=== PATIENT | female | born 1950 | race Caucasian/White ===

== ENCOUNTER → 2017-07-17 | Outpatient (CLI) | payer OTHER | LOC: FIMAGING 16:09 | PROVIDERS: ATTEND Internal Medicine | DX: Z12.31 Encounter for screening mammogram for malignant neoplasm of breast (principal); Z80.3 Family history of malignant neoplasm of breast | CPT/HCPCS: G0202 ==

== ENCOUNTER → 2018-07-18 | Outpatient (CLI) | payer OTHER, MEDICARE | LOC: FIMAGING 07:35 | PROVIDERS: ATTEND Internal Medicine | DX: Z12.31 Encounter for screening mammogram for malignant neoplasm of breast (principal); Z80.3 Family history of malignant neoplasm of breast ==

== ENCOUNTER 2018-07-29 14:52 | Inpatient (IN) | payer OTHER, MEDICARE ==
[2018-07-29] MEDS ORDERED: MAG HYDROX/AL HYDROX/SIMETH 30 ML UDCUP PO ONE (15:22)
[2018-07-29] MEDS ORDERED: NS 1,000 ML IV ONE (15:22)
[2018-07-29] MEDS ORDERED: HYOSCYAMINE SULFATE 0.125 MG TAB PO ONE (15:22)
[2018-07-29] MEDS ORDERED: LIDOCAINE 2% VISCOUS 15 ML UDCUP PO ONE (15:22)
[2018-07-29] MEDS ORDERED: ONDANSETRON 4 MG/2 ML VIAL IVP ONE (15:22)
--- NOTE | 2018-07-29 15:27 | EDPHY ---
H & P Stated Complaint: n/v epigastric abd pain post eating questionable food outside Time Seen by Provider: 07/29/18 15:15 HPI/ROS: CHIEF COMPLAINT: Epigastric pain HISTORY OF PRESENT ILLNESS: The patient is a 67-year-old healthy female who comes to the emergency department complaining of epigastric pain that she noticed today a few minutes after eating lunch. She ate a picnic with doubled aches and chicken salad. About 30 min after she began throwing up. She has thrown up twice. No diarrhea. No fever. No chest pain or shortness of breath. The people who also ate the food do not feel sick at all. She has no cardiac or pulmonary history. No history of biliary disease or peptic ulcer disease. She does not feel frequent episodes of heartburn. She describes the pain as sharp in her epigastrium. It is not worsened by deep inspirations are movements. She came in to have her heart evaluated. Severity: Moderate Modifying factors: None REVIEW OF SYSTEMS: Constitutional: denies: chills, fever, recent illness, recent injury EENTM: denies: blurred vision, double vision, nose congestion Respiratory: denies: cough, shortness of breath Cardiac: See HPI denies: irregular heart rate, lightheadedness, palpitations Gastrointestinal/Abdominal: denies: abdominal pain, diarrhea, nausea, vomiting, blood streaked stools Genitourinary: denies: dysuria, frequency, hematuria, pain Musculoskeletal: denies: joint pain, muscle pain Skin: denies: lesions, rash, jaundice, bruising Neurological: denies: headache, numbness, paresthesia, tingling, dizziness, weakness Hematologic/Lymphatic: denies: blood clots, easy bleeding, easy bruising Immunologic/allergic: denies: HIV/AIDS, transplant EXAM: GENERAL: Well-appearing, well-nourished and in no acute distress. HEAD: Atraumatic, normocephalic. EYES: Pupils equal round and reactive to light, extraocular movements intact, sclera anicteric, conjunctiva are normal. ENT: TMs normal, nares patent, oropharynx clear without exudates. Moist mucous membranes. NECK: Normal range of motion, supple without lymphadenopathy or JVD. LUNGS: Breath sounds clear to auscultation bilaterally and equal. No wheezes rales or rhonchi. HEART: Regular rate and rhythm without murmurs, rubs or gallops. ABDOMEN: Soft, nontender, normoactive bowel sounds. No guarding, no rebound. No masses appreciated. BACK: No CVA tenderness, no spinal tenderness, step-offs or deformities EXTREMITIES: Normal range of motion, no pitting or edema. No clubbing or cyanosis. NEUROLOGICAL: Cranial nerves II through XII grossly intact. Normal speech, normal gait. 5/5 strength, normal movement in all extremities, normal sensation , normal reflexes PSYCH: Normal mood, normal affect. SKIN: Warm, dry, normal turgor, no visible rashes or lesions. Source: Patient, Family Exam Limitations: No limitations - Personal History Current Tetanus Diphtheria and Acellular Pertussis (TDAP): Yes - Medical/Surgical History Hx Asthma: No Hx Chronic Respiratory Disease: No Hx Diabetes: No Hx Cardiac Disease: No Hx Renal Disease: No Hx Cirrhosis: No Hx Alcoholism: No Hx HIV/AIDS: No Hx Splenectomy or Spleen Trauma: No Other PMH: denies - Family History Significant Family History: No pertinent family hx - Social History Smoking Status: Never smoked Alcohol Use: Sober Drug Use: None Constitutional: Initial Vital Signs Temperature (C) 36.8 C 07/29/18 14:55 Heart Rate 63 07/29/18 14:55 Respiratory Rate 18 07/29/18 14:55 Blood Pressure 119/63 07/29/18 14:55 O2 Sat (%) 97 07/29/18 14:55 O2 Delivery Mode Nasal Cannula O2 (L/minute) 2 Allergies/Adverse Reactions: No Known Allergies Allergy (Verified 07/29/18 18:30) Home Medications: Medication Instructions Recorded Ibuprofen [Motrin (*)] 200 - 600 mg PO Q6H PRN 07/29/18 Medical Decision Making - Diagnostics EKG Interpretation: An EKG obtained and was read and documented in trace view. Please see trace view for full reading and report. Sinus rhythm, no acute ischemic changes Imaging: Discussed imaging studies w/ call worker person Radiologist ED Course/Re-evaluation: 4:50 p.m. the patient continues to have pain. Her lipase just came back and is securely elevated. I will order an ultrasound. She denies significant alcohol intake. No history of familial hypercholesterolemia. 5:50 p.m. I discussed the case with Dr. Mack who will admit to the medical service and requests an MRCP. Differential Diagnosis: Partial list of the Differential diagnosis considered include but were not limited to; acute coronary disease, pancreatitis, biliary disease, peptic ulcer disease and although unlikely based on the history and physical exam, I also considered dissection, aneurysm, PE. - Data Points Laboratory Results: Laboratory Results 07/29/18 15:28 07/29/18 15:28 Medications Given: Acetaminophen (Tylenol) 650 mg PO Q4HRS PRN PRN Reason: Pain, Mild/Fever, Can Take PO Stop: 01/25/19 21:17 Last Admin: 07/30/18 17:21 Dose: 650 mg Enoxaparin Sodium (Lovenox) 40 mg SC DAILY JHON Stop: 01/26/19 08:59 Last Admin: 07/30/18 08:33 Dose: 40 mg Hydromorphone HCl (Dilaudid) 0.2 - 1 mg IVP Q2 PRN PRN Reason: Pain, Severe Unable to Take PO Stop: 08/08/18 21:17 Last Admin: 07/29/18 21:48 Dose: 0.5 mg Sodium Chloride (Ns) 1,000 mls @ 100 mls/hr IV CONT JHON Stop: 01/25/19 21:29 Last Admin: 07/30/18 08:33 Dose: 1,000 mls Ketorolac Tromethamine (Toradol) 15 - 30 mg IVP Q6HRS PRN PRN Reason: Pain, Breakthrough Stop: 08/04/18 00:00 Last Admin: 07/30/18 14:19 Dose: 15 mg Discontinued Medications Al Hydroxide/Mg Hydroxide (Maalox Susp) 30 ml PO ONCE ONE Stop: 07/29/18 15:23 Last Admin: 07/29/18 15:49 Dose: 30 ml Hydromorphone HCl (Dilaudid) 0.5 mg IVP EDNOW ONE Stop: 07/29/18 16:48 Last Admin: 07/29/18 17:07 Dose: 0.5 mg Hyoscyamine Sulfate (Levsin, Hyomax-Sl) 0.25 mg PO ONCE ONE Stop: 07/29/18 15:23 Last Admin: 07/29/18 15:49 Dose: 0.25 mg Sodium Chloride (Ns) 1,000 mls @ 0 mls/hr IV EDNOW ONE; Wide Open PRN Reason: Protocol Stop: 07/29/18 15:23 Last Admin: 07/29/18 15:48 Dose: 1,000 mls Lidocaine (Lidocaine 2% Viscous) 15 ml PO ONCE ONE Stop: 07/29/18 15:23 Last Admin: 07/29/18 15:49 Dose: 15 ml Ondansetron HCl (Zofran) 4 mg IVP EDNOW ONE Stop: 07/29/18 15:23 Last Admin: 07/29/18 15:49 Dose: 4 mg Point of Care Test Results: Chemistry 07/29/18 15:26 POC Troponin I 0.01 ng/mL ng/mL (0.00-0.08) Departure - Departure Disposition: [facility] Acute Clinical Impression: Pancreatitis Qualifiers: Chronicity: acute Pancreatitis type: unspecified pancreatitis type Acute pancreatitis complication: unspecified Qualified Code(s): K85.90 - Acute pancreatitis without necrosis or infection, unspecified Condition: Fair
[2018-07-29 15:32] LABS: PLATELET COUNT 219 10^3/uL (150-400)
[2018-07-29] MEDS ORDERED: HYDROmorphONE/DILAUDID 2 MG/ML INJ IVP ONE (16:47)
--- NOTE | 2018-07-29 16:50 | CPEKG ---
Test Reason : OPEN Blood Pressure : / mmHG Vent. Rate : 059 BPM Atrial Rate : 059 BPM P-R Int : 140 ms QRS Dur : 078 ms QT Int : 417 ms P-R-T Axes : 072 064 050 degrees QTc Int : 414 ms Sinus rhythm Probable left atrial enlargement Confirmed by Matt Quinn ([id number] on 07/29/2018 4:50:37 PM Referred By: Confirmed By:Matt Quinn
[2018-07-29] MEDS ORDERED: GADOBUTROL 10 ML VIAL IVP ONE (18:47)
[2018-07-29] MEDS ORDERED: PROMETHAZINE HCL 25 MG TAB PO PRN (21:18)
[2018-07-29] MEDS ORDERED: HYDROmorphONE/DILAUDID 2 MG TAB PO PRN (21:18)
[2018-07-29] MEDS ORDERED: HYDROmorphONE/DILAUDID 1 MG/ML INJ IVP PRN (21:18)
[2018-07-29] MEDS ORDERED: ONDANSETRON DISINTEGRATING 4 MG TAB PO PRN (21:18)
[2018-07-29] MEDS ORDERED: ONDANSETRON 4 MG/2 ML VIAL IVP PRN (21:18)
[2018-07-29] MEDS ORDERED: PROMETHAZINE HCL 25 MG/ML INJ IVP PRN (21:18)
[2018-07-29] MEDS ORDERED: KETOROLAC 15 MG/1 ML SDV IVP PRN (21:20)
--- NOTE | 2018-07-29 22:45 | PDGENHP ---
History and Physical - Chief Complaint Acute abdominal pain - History of Present Illness Primary care provider: Dr. Hillary Mclain HPI: 67-year-old female presents with acute abdominal pain characterized as a sharp pressure located in the mid epigastric area with associated preceding anorexia, subsequent nausea and vomiting. Patient reports the onset of symptoms were approximately 11:15 a.m. On the day of presentation, following a tennis match and lunch. The symptoms have been of constant duration until receiving IV Dilaudid in the emergency department, which has transiently alleviated the symptoms. The patient reports that she has never experienced similar symptoms. Prior to her onset of symptoms, the patient reports that she had had an asymptomatic tennis match on the evening prior to presentation, consumed half of an alcoholic beverage with her dinner, and had a seemingly normal morning on the day of presentation, prior to her onset of symptoms. She was able to complete her tennis match without any symptoms, and she experienced no exertional chest pain or reduction exercise tolerance. History Information - Allergies/Home Medication List Allergies/Adverse Reactions: No Known Allergies Allergy (Verified 07/29/18 18:30) Home Medications: Ibuprofen [Motrin (*)] 200 - 600 mg PO Q6H PRN 07/29/18 [Last Taken 07/27/18 400mg] I have personally reviewed and updated: family history, medical history, social history, surgical history - Past Medical History no pertinent PMH - Surgical History Reports: no pertinent surgical hx - Family History Additional family history: Father with some sort of gallbladder issue, possibly cholecystitis, no biliary or pancreatic cancer, no family history of idiopathic pancreatitis - Social History Smoking Status: Never smoked Alcohol Use: Occasionally (Very minimal intake, 1 alcoholic beverage occasionally) Drug Use: None Additional social history: Very physically active, plays tennis regularly, no reduction exercise tolerance, eats a healthy diet Review of Systems Review of Systems: ROS: 10pt was reviewed & negative except for what was stated in HPI & below Gastrointestinal: Reports: vomitting, abdominal pain, nausea Physical Exam Physical Exam: Temp Pulse Resp BP Pulse Ox 36.7 C 49 L 17 92/70 L 94 07/29/18 20:50 07/29/18 20:50 07/29/18 20:50 07/29/18 20:50 07/29/18 20:50 Constitutional: no apparent distress, appears nourished, not in pain Eyes: PERRL, anicteric sclera, EOMI Ears, Nose, Mouth, Throat: moist mucous membranes, hearing normal, ears appear normal, no oral mucosal ulcers Cardiovascular: regular rate and rhythym, no murmur, rub, or gallop, No edema Respiratory: no respiratory distress, no rales or rhonchi, clear to auscultation Gastrointestinal: tenderness (Moderate to mild depth palpation in the mid epigastric area), No normoactive bowel sounds (Hypoactive bowel sounds), No guarding, No distension Genitourinary: no bladder fullness, no bladder tenderness Neurologic: AAOx3, sensation intact bilaterally, No weakness Psychiatric: interacting appropriately, not anxious, not encephalopathic, thought process linear Lab Data & Imaging Review 07/29/18 15:28 07/29/18 15: WBC 11.01 10^3/uL (3.80-9.50) H 07/29/18 15: RBC 4.32 10^6/uL (4.18-5.33) 07/29/18 15: Hgb 13.1 g/dL (12.6-16.3) 07/29/18 15: Hct 38.6 % (38.0-47.0) 07/29/18 15: MCV 89.4 fL (81.5-99.8) 07/29/18 15: MCH 30.3 pg (27.9-34.1) 07/29/18 15: MCHC 33.9 g/dL (32.4-36.7) 07/29/18 15: RDW 13.2 % (11.5-15.2) 07/29/18 15: Plt Count 219 10^3/uL (150-400) 07/29/18 15: MPV 9.7 fL (8.7-11.7) 07/29/18 15: Neut % (Auto) 77.4 % (39.3-74.2) H 07/29/18 15: Lymph % (Auto) 16.3 % (15.0-45.0) 07/29/18 15: [place] % (Auto) 5.5 % (4.5-13.0) 07/29/18 15: Eos % (Auto) 0.3 % (0.6-7.6) L 07/29/18 15:28 Baso % (Auto) 0.1 % (0.3-1.7) L 07/29/18 15: Nucleat RBC Rel Count 0.0 % (0.0-0.2) 07/29/18 15:28 Absolute Neuts (auto) 8.52 10^3/uL (1.70-6.50) H 07/29/18 15: Absolute Lymphs (auto) 1.80 10^3/uL (1.00-3.00) 07/29/18 15: Absolute Monos (auto) 0.61 10^3/uL (0.30-0.80) 07/29/18: Absolute Eos (auto) 0.03 10^3/uL (0.03-0.40) 07/29/18 15: Absolute Basos (auto) 0.01 10^3/uL (0.02-0.10) L 07/29/18 15: Absolute Nucleated RBC 0.00 10^3/uL (0-0.01) 07/29/18 15: Immature Gran % 0.4 % (0.0-1.1) 07/29/18 15: Immature Gran # 0.04 10^3/uL (0.00-0.10) 07/29/18 15: D-Dimer 0.45 ug/mLFEU (0.00-0.50) 07/29/18 15: Sodium 138 mEq/L (135-145) 07/29/18 15: Potassium 3.8 mEq/L (3.3-5.0) 07/29/18 15: Chloride 106 mEq/L (97-110) 07/29/18 15: Carbon Dioxide 26 mEq/l (22-31) 07/29/18 15:28 Anion Gap 6 mEq/L (8-16) L 07/29/18 15:28 BUN 20 mg/dL (7-23) 07/29/18 15:28 Creatinine 0.8 mg/dL (0.6-1.0) 07/29/18 15:28 Estimated GFR > 60 07/29/18 15:28 Glucose 144 mg/dL (70-100) H 07/29/18 15:28 Calcium 9.3 mg/dL (8.5-10.4) 07/29/18 15:28 Total Bilirubin 0.7 mg/dL (0.1-1.4) 07/29/18 15:28 Conjugated Bilirubin 0.1 mg/dL (0.0-0.5) 07/29/18 15:28 Unconjugated Bilirubin 0.6 mg/dL (0.0-1.1) 07/29/18 15:28 AST 29 IU/L (14-46) 07/29/18 15:28 ALT 33 IU/L (9-52) 07/29/18 15:28 Alkaline Phosphatase 55 IU/L (38-126) 07/29/18 15:28 POC Troponin I 0.01 ng/mL (0.00-0.08) 07/29/18 15:26 Total Protein 6.6 g/dL (6.3-8.2) 07/29/18 15:28 Albumin 4.1 g/dL (3.5-5.0) 07/29/18 15:28 Lipase > 82609 IU/L (23-300) H 07/29/18 15:28 Visualized and Interpreted Chest x-ray results: Yes Chest X-Ray results: no infiltrate Visualized and Interpreted EKG results: Yes EKG Interpretation: Positive for: normal sinsus rhythm Assessment & Plan Assessment: 67-year-old female presents with acute pancreatitis Plan: 1. Acute pancreatitis. New problem this provider, further workup indicated. Unclear etiology, does not appear to be alcohol or diet related -evidenced by lipase of greater than 20,000, with classic midepigastric tenderness -ultrasound demonstrating cholelithiasis but no common bile duct dilatation, small cyst at the pancreatic head -I suspect that this may be gallstone pancreatitis, discussed with Dr. Matt Quinn, we agreed that an MRCP would be the rational next step in evaluation -bowel rest, IV fluids, pain and antiemetic medications -monitor leukocytosis, monitor creatinine and potassium Diet. NPO with sips and chips, IV fluids Prophylaxis. Moderate risk patient, Lovenox 40 Code. Full Disposition. Anticipated discharge uncertain this time, anticipated length stay is greater than 48 hr for reasonable medical necessity including acute pancreatitis requiring additional workup, bowel rest, IV fluids and pain/ antiemetic medications.
[2018-07-30] MEDS: NS 1,000 ML IV SCH ×2 (02:19→08:33)
[2018-07-30 04:19] LABS: PLATELET COUNT 201 10^3/uL (150-400)
[2018-07-30] MEDS: ACETAMINOPHEN 325 MG TAB PO PRN ×2 (07:33→17:21)
[2018-07-30] MEDS: ENOXAPARIN 40 MG/0.4 ML SYR SC SCH (08:33)
--- NOTE | 2018-07-30 13:50 | PDMN ---
Medical Necessity Medical necessity: Pt meets IP criteria per MD & MCG M-250; est los >2 mn for eval/tx of acute pancreatitis of unclear etiology w/lipase >20,000, severe 8/10 abdominal pain & N/V; requiring further workup/monitoring, NPO status/bowel rest , IVFs & IV pain meds/antiemetics; per H&P & order 07/29/18
--- NOTE | 2018-07-30 14:06 | HOSPPROG ---
Hospitalist Progress Note Assessment/Plan: 1. Acute pancreatitis. New problem this provider, further workup indicated. Unclear etiology, does not appear to be alcohol or diet related -evidenced by lipase of greater than 20,000, with classic midepigastric tenderness -ultrasound demonstrating cholelithiasis but no common bile duct dilatation, small cyst at the pancreatic head -bowel rest, IV fluids, pain and antiemetic medications -monitor leukocytosis, monitor creatinine and potassium Diet. clear liquid, advance as tolerated, IV fluids Prophylaxis. Moderate risk patient, Lovenox 40 Code. Full Disposition. Anticipated discharge uncertain this time, anticipated length stay is greater than 48 hr for reasonable medical necessity including acute pancreatitis requiring additional workup, bowel rest, IV fluids and pain/ antiemetic medications. Subjective: Patient reports epigastric discomfort Objective: Vital Signs Temp Pulse Resp BP Pulse Ox 36.6 C 69 14 113/58 L 95 07/30/18 07:40 07/30/18 11:35 07/30/18 11:35 07/30/18 11:35 07/30/18 11:35 Laboratory Results 07/30/18 04:08 07/30/18 04:08 - Physical Exam Constitutional: no apparent distress Eyes: PERRL Ears, Nose, Mouth, Throat: moist mucous membranes Cardiovascular: regular rate and rhythym Respiratory: no respiratory distress, clear to auscultation Gastrointestinal: normoactive bowel sounds, tenderness Genitourinary: no bladder fullness Skin: warm Musculoskeletal: full muscle strength Neurologic: AAOx3 Psychiatric: interacting appropriately ICD10 Worksheet Patient Problems: Problems Problem Status Onset Pancreatitis Acute
--- NOTE | 2018-07-30 15:18 | ASMTCASEMG ---
Living Arrangements What is your living Answers: With Spouse arrangement? Who do you live with? Type Of Residence What kind of residence do Answers: House you live in? Discharge Plan Comments Coordination Status Comments Notes: Pt is a 67 y/o female admitted for acute pancreatitis. GI is consulting. Pt will most likely d/c independent when medically stable. No therapies ordered at this time. CM available for changes. Plan: Independent Date Signed: 07/30/2018 03:17 PM Electronically Signed By:DOMINICK Conner
[2018-07-31] MEDS: ACETAMINOPHEN 325 MG TAB PO PRN (05:16)
[2018-07-31 08:01] VITALS: BP 116/58
[2018-07-31] MEDS: ENOXAPARIN 40 MG/0.4 ML SYR SC SCH (08:51)
--- NOTE | 2018-07-31 11:44 | PDDCSUM ---
Discharge Summary Discharge Summary: Admission Date: 07/29/2018 Discharge Date: 07/31/2018 Admission/Discharge Diagnosis: Acute Pancreatitis Consults: N/A Procedures: MRCP Followup: Repeat Pancreatic imaging (MRI/CT) in 6-12 months for pancreatic cyst seen on MRI Hospital Problem List: 1. Acute pancreatitis. - Unclear etiology, does not appear to be alcohol or diet related -evidenced by lipase of greater than 20,000, with classic midepigastric tenderness -ultrasound demonstrating cholelithiasis but no common bile duct dilatation, small cyst at the pancreatic head -MRCP showed cholelithiasis with no cholecystitis, CBD dilatation - Patient was placed on bowel rest, IV fluids, pain and antiemetic medications with improvement in symptoms - Patient able to tolerate PO diet today with minimal nausea or abdominal pain Time spent on discharge >35 minutes with >50% of time spent on patient education /counseling
== END 2018-07-31 11:40 | disposition home or self-care (01) | DRG 439 ==
LOC: F2W 20:25
PROVIDERS: ADMIT Internal Medicine; ATTEND Internal Medicine
DX: K85.90 Acute pancreatitis without necrosis or infection, unspecified (principal); K86.2 Cyst of pancreas
CPT/HCPCS: 84484-PO; 96374; A9585; J1170; J1650; J1885; J2405